=== PATIENT | female | born 1985 | race Caucasian/White ===

== ENCOUNTER 2022-11-04 09:32 | Emergency (ER) | payer BC ==
[2022-11-04 11:09] LABS: ESTIMATED GFR 123 mL/min (>60); TROPONIN I HIGH SENSITIVITY < 4.0 pg/mL (<=60.3)
== END 2022-11-04 11:34 | disposition home or self-care (01) ==
LOC: JP.ED 09:32
DX: R07.89 Other chest pain (principal)
CPT/HCPCS: 36415; 80048; 83735; 84443; 84484; 85025; 93005; 99285